=== PATIENT | male | born 1980 | race Caucasian/White ===

== ENCOUNTER → 2018-11-21 | Outpatient (CLI) | payer SELFPAY ==
[~2018-11-21] MED LIST: CLIN300C99 PO; IBU800 PO; LOR5 PO; SUMA100T32 PO
--- NOTE | 2018-11-21 14:12 | RADIOLOGY IMAGING REPORT ---
FACILITY: [facility] PATIENT NAME: Dale Gan : 1980 MR: [id number] V: [id number] EXAM DATE: ORDERING PHYSICIAN: MONIKA HORNER TECHNOLOGIST: Location: [facility] [place] Patient: Dale Gan : 1980 Visit/Account:[id number] Date of Sevice: 11/21/2018 LIVER HISTORY: Ascites, right upper quadrant pain COMPARISON: CT abdomen and pelvis July 24, 2015 FINDINGS: Gallbladder: Unremarkable; no stones or sludge. Liver: Negative. Common duct: Normal, four mm diameter. Pancreas: Partially obscured by bowel, visualized aspects unremarkable. Right kidney: Unremarkable measuring 9.1 cm in length Upper abdominal aorta and IVC: Patent. Ascites: None visualized. IMPRESSION: Unremarkable right upper quadrant ultrasound Report Dictated By: Kiesha Torres MD at 11/21/2018 1:42 PM Report E-Signed By: Kiesha Torres MD at 11/21/2018 2:04 PM WSN:[email or web address]
--- NOTE | 2018-11-21 14:19 | RADIOLOGY IMAGING REPORT ---
FACILITY: [facility] PATIENT NAME: Dale Gan : 1980 MR: [id number] V: [id number] EXAM DATE: ORDERING PHYSICIAN: MONIKA HORNER TECHNOLOGIST: [facility] Patient: Dale Gan : 1980 Visit/Account:[id number] Date of Sevice: 11/21/2018 Exam type: CHEST PA LAT History: Abnormal lung sounds, history of smoking Comparison: June 10, 2012. Findings: There is an S-shaped scoliosis of the thoracic spine. There is peribronchial thickening no edward bilaterally which is increased when compared the prior study. No evidence of focal infiltrates o r pleural effusions. There is a nodular density projecting over the left midlung field. A similar f inding is seen over the right mid lung field. This could represent nipple shadows however a repeat c hest with nipple markers recommended. Cardiac silhouette appears normal in size IMPRESSION: 1. Mild peribronchial thickening bilaterally which is increased when compared the prior study. This could represent an acute peribronchial inflammatory process Nodular densities project over the midlung levy which could represent nipple shadows although a rep eat chest with nipple markers recommended to exclude pulmonary nodules. Report Dictated By: Kiesha Torres MD at 11/21/2018 2:07 PM Report E-Signed By: Kiesha Torres MD at 11/21/2018 2:10 PM WSN:[email or web address]
== END ==
LOC: US 02:12
PROVIDERS: ATTEND Family Medicine
DX: R18.8 Other ascites (principal); R10.11 Right upper quadrant pain; R91.8 Other nonspecific abnormal finding of lung field
CPT/HCPCS: 71046; 76705